=== PATIENT | male | born 1955 | race Caucasian/White ===

== ENCOUNTER 2024-07-09 08:55 | Inpatient (IN) | payer OTHER ==
[~2024-07-09] VITALS: Ht 182.9 cm; Wt 95.5 kg
[2024-07-09] MEDS: amLODIPine BESYLATE 5 MG TAB PO ONE (09:28)
[2024-07-09 09:41] LABS: Basophils # (auto) 0 10 ^3/uL (0-0.2); Basophils % (auto) 0.6 % (0.0-2.0); Eosinophils # (auto) 0 10 ^3/uL (0-0.8); Eosinophils % (auto) 0.5 % (0.0-7.0); Hemoglobin 13.8 g/dL (13.5-17.5); Lymphocytes # (auto) 2.1 10 ^3/uL (0.4-5.4); Lymphocytes % (auto) 41.9 % (10.0-50.0); Mean Corpuscular Hemoglobin 29.7 pg (28.0-32.0); Mean Corpuscular Hgb Conc. 32.8 g/dL (32.0-36.0); Mean Corpuscular Volume 90.5 fL (80.0-100.0); Monocytes # (auto) 0.5 10 ^3/uL (0-1.3); Monocytes % (auto) 9.4 % (0.0-12.0); Neutrophils # (auto) 2.3 10 ^3/uL (1.6-8.6); Neutrophils % (auto) 47.6 % (37.0-80.0); Platelet Count (auto) 256 10^3/uL (140-450); Red Blood Cells 4.64 10^6/uL (4.5-5.90); Red Cell Distribution Width 13.9 % (11.8-14.3); White Blood Cell 4.9 10^3/uL (4.4-10.8)
[2024-07-09 09:47] LABS: Chloride 104 mmol/L (98-107); Potassium 4.1 mmol/L (3.5-5.1); Sodium 139 mmol/L (136-145)
[2024-07-09 09:48] LABS: Anion Gap 6 (5-15); Carbon Dioxide 29 mmol/L (20-31)
[2024-07-09 09:49] LABS: Calcium 10.2 mg/dL (8.7-10.4)
[2024-07-09 09:53] LABS: BUN/Creatinine Ratio 7.8 (10.0-20.0); Blood Urea Nitrogen 11 mg/dL (9-23); Glucose 99 mg/dL (74-106)
[2024-07-09] MEDS ORDERED: ONDANSETRON HCL 4 MG/2 ML VIAL IV PRN (16:15)
[2024-07-09] MEDS ORDERED: ACETAMINOPHEN 325 MG TAB PO PRN (16:15)
[2024-07-09] MEDS ORDERED: MORPHINE SULFATE INJ 2 MG/ml SYRG IV PRN ×2 (16:15)
[2024-07-09] MEDS ORDERED: HYDROcodone-ACET 5/325MG TAB PO PRN (16:15)
[2024-07-09] MEDS ORDERED: NITROGLYCERIN 0.4 MG SL TAB SL PRN (16:15)
[2024-07-09] MEDS: ENOXAPARIN SOD 40 MG/0.4 ML SYRINGE SC SCH (16:33)
[2024-07-09] MEDS: METOPROLOL TARTRATE 25 MG TAB PO SCH (16:33)
[2024-07-09] MEDS ORDERED: LEVO175T4 PO (23:32)
[2024-07-09] MEDS ORDERED: CLOP75TA28 PO (23:32)
[2024-07-10] VITALS (8 sets, daily range): BP systolic 127–163; BP diastolic 79–87; PULSE 64–72; RESP 16–18; TEMP 97.6–98.3; O2SAT 96–99
[2024-07-10] MEDS ORDERED: MET25T PO (16:40)
[2024-07-10] MEDS: hydrALAZINE HCL 20 MG/ML VL IV PRN (19:13)
== END 2024-07-10 20:00 | disposition home or self-care (01) | DRG 305 ==
LOC: ER 08:55 → TELE 16:04 → TELE-WESTW 23:10
PROVIDERS: ADMIT Internal Medicine; ATTEND Internal Medicine
DX: I16.0 Hypertensive urgency (principal); I25.10 Atherosclerotic heart disease of native coronary artery without angina pectoris; Z79.899 Other long term (current) drug therapy; Z95.5 Presence of coronary angioplasty implant and graft
CPT/HCPCS: 36415; 80048; 84484; 85025; 93005; 93306; 99291; G0378